=== PATIENT | female | born 1960 | race Caucasian/White ===

== ENCOUNTER 2020-06-09 12:10 | Emergency (ER) | payer MEDICAID ==
[~2020-06-09] VITALS: Ht 167.6 cm; Wt 59.0 kg
[~2020-06-09 12:10] MED LIST: ADVIL
[2020-06-09 12:17] VITALS: BP 190/77
--- NOTE | 2020-06-09 12:31 | NUR ---
Pt ambulated to bed 7
--- NOTE | 2020-06-09 12:34 | NUR ---
59 y/o female referred from urgent care for rule out TN and HTN. Pt c/o neck, shoulder pain and chest tightness x 4 days. Denies SOB at this time. Denies trauma/injury. +nausea, denies vomiting/diarrhea. /10 pressure to chest at this time. Awake and alert. medhx: HTN, HLD, GERD
[2020-06-09] MEDS ORDERED: ASPIRIN 81 MG TAB.CHEW PO ONE (12:40)
[2020-06-09] MEDS ORDERED: NACL 0.9% 1,000 ML IV ONE (12:40)
--- NOTE | 2020-06-09 12:50 | NUR ---
rad at bedside
--- NOTE | 2020-06-09 12:52 | NUR ---
Dr Bob at bedside examining pt
[2020-06-09 13:53] LABS: BASOPHILS # (AUTO) 0.1 K/uL (0.00-0.22); BASOPHILS % (AUTO) 1.2 % (0.0-2.0); EOSINOPHILS # (AUTO) 0.1 K/uL (0-0.4); EOSINOPHILS % (AUTO) 1.4 % (0.0-4.0); HEMATOCRIT 42.3 % (36-48); HEMOGLOBIN 14.3 g/dL (12.0-16.0); LYMPHOCYTES # (AUTO) 2.2 K/uL (2.5-16.5); LYMPHOCYTES % (AUTO) 32.2 % (20.5-51.1); MEAN CORPUSCULAR HEMOGLOBIN 31 pg (27-31); MEAN CORPUSCULAR HGB CONC 34 g/dL (33-37); MEAN CORPUSCULAR VOLUME 91.9 fL (80-94); MONOCYTES # (AUTO) 0.4 K/uL (0.8-1.0); MONOCYTES % (AUTO) 5.3 % (1.7-9.3); NEUTROPHILS % (AUTO) 59.9 % (42.2-75.2); PLATELET COUNT (AUTO) 232 K/uL (140-450); WHITE BLOOD COUNT (AUTO) 6.7 K/uL (4.8-10.8)
[2020-06-09 14:11] LABS: ALBUMIN 3.8 g/dL (3.4-5.0); ANION GAP 15.4 (8-16); CARBON DIOXIDE 25.5 mmol/L (21-32); CREATININE 0.6 mg/dL (0.6-1.3); POTASSIUM 3.9 mmol/L (3.5-5.1); TOTAL BILIRUBIN 0.4 mg/dL (0.0-1.0)
[2020-06-09 14:43] VITALS: BP 172/62
== END 2020-06-09 14:43 | disposition home or self-care (01) ==
LOC: MED 12:10
DX: R07.9 Chest pain, unspecified (principal); M54.2 Cervicalgia; K21.9 Gastro-esophageal reflux disease without esophagitis; E78.5 Hyperlipidemia, unspecified; Z79.899 Other long term (current) drug therapy
CPT/HCPCS: 36415; 71045; 80053; 84484; 85025; 93005; 96360; 99285; J7030